=== PATIENT | male | born 1990 | race Caucasian/White ===

== ENCOUNTER → 2017-12-28 17:52 | Emergency (ER) | payer OTHER ==
[~2017-12-28] VITALS: Ht 188 cm; Wt 72.6 kg
[~2017-12-28 17:52] MED LIST: MORPHINE SULFATE 4 MG/ML SYR/VIAL IV ONE; MORPHINE SULFATE 4 MG/ML SYR/VIAL ONE; ONDANSETRON HCL 4 MG/2 ML VIAL IV ONE; ONDANSETRON HCL 4 MG/2 ML VIAL ONE
[2017-12-28 20:26] VITALS: BP 126/75
== END | disposition home or self-care (01) ==
LOC: ER 17:52
DX: S42.115A Nondisplaced fracture of body of scapula, left shoulder, initial encounter for closed fracture (principal); S40.212A Abrasion of left shoulder, initial encounter; V86.56XA Driver of dirt bike or motor/cross bike injured in nontraffic accident, initial encounter; Y93.89 Activity, other specified; Y99.9 Unspecified external cause status; Y92.820 Desert as the place of occurrence of the external cause
CPT/HCPCS: 70450; 71045; 72125; 73030; 96374; 96375; 99284; J2270; J2405